=== PATIENT | female | born 1960 | race Caucasian/White ===

== ENCOUNTER 2016-07-15 05:56 | Day surgery (SDC) | payer OTHER ==
[~2016-07-15] VITALS: Ht 160 cm; Wt 90.7 kg
[2016-07-15] MEDS ORDERED: LEVOTHYROXIN0.075 M2 PO (07:03)
[2016-07-15] MEDS ORDERED: OMEPRAZOLE40 MG PO (07:03)
[2016-07-15] MEDS ORDERED: HCTZ/LISINOPRIL1 TA1 PO (07:03)
[2016-07-15] MEDS ORDERED: SEVOFLURANE 250 ML BTL INH ONE (07:30)
[2016-07-15] MEDS ORDERED: ONDANSETRON 4 MG/2 ML VIAL ONE (07:30)
[2016-07-15] MEDS ORDERED: PROPOFOL 200 MG/20 ML VIAL IV ONE (07:30)
[2016-07-15] MEDS ORDERED: fentaNYL 0.05 MG/ML VIAL ONE (07:38)
[2016-07-15] MEDS ORDERED: ONDANSETRON 4 MG/2 ML VIAL IVP PRN ×2 (07:55→08:20)
[2016-07-15] MEDS ORDERED: HYDROmorphone 1 MG/ML AMP IVP PRN (07:55)
[2016-07-15] MEDS ORDERED: ACETAMINOPHEN/CODEINE 300/30MG 1 TAB PO PRN (08:20)
[2016-07-15] MEDS ORDERED: IBUPROFEN 800 MG TAB PO PRN (08:20)
[2016-07-15] MEDS ORDERED: MORPHINE SULFATE 4 MG/ML SYR IM/IVP PRN (08:20)
[2016-07-15] MEDS: HYDROmorphone PFS 2 MG/ML SYR ONE ×2 (08:40→08:50)
[2016-07-15 09:30] VITALS: BP 142/84
--- NOTE | 2016-07-15 09:30 | NUR ---
RECEIVED REPORT FROM OR NURSE. PT IS AAOX4, DENIES PAIN/DISCOMFORT AT THIS TIME. SKIN IS DRY AND INTACT. PERIPAD IN PLACE, MODERATE AMOUNT OF SANGUINEOUS BLOOD. IV IS PATENT AND INTACT. PT IS ON ROOM AIR, VITALS STABLE. CALL LIGHT WITHIN REACH. ORIENTED PT TO HOSP ENVIRONMENT. WILL CONTINUE TO MONITOR.
--- NOTE | 2016-07-15 11:30 | NUR ---
PT RESTING COMFORTABLY AND AROUSABLE. FAMILY AT BEDSIDE. WILL CONTINUE TO MONITOR.
--- NOTE | 2016-07-15 14:47 | NUR ---
ALL NEEDS MET AT THIS TIME.
[2016-07-15 16:00] VITALS: BP 100/52
--- NOTE | 2016-07-15 16:13 | NUR ---
VITALS REMAIN STABLE, WILL CONTINUE TO MONITOR.
--- NOTE | 2016-07-15 18:48 | NUR ---
PT RESTING, NO S/SX OF DISTRESS NOTED.
--- NOTE | 2016-07-15 19:11 | NUR ---
Patient's Plan of Care was discussed and reviewed with PECAN PICKER: JO ANN
--- NOTE | 2016-07-15 19:11 | NUR ---
ENDORSED TO WATER POLLUTION SPECIALIST FOR CONTINUITY OF CARE IN STABLE CONDITION.
--- NOTE | 2016-07-15 19:12 | NUR ---
RECD. RESTING IN BED, AWAKE, A/OX4. RESPIRATION EVEN AND UNLABORED. IV SALINE LOCK AT THE RIGHT AC G 20, PATENT, INTACT. CLAIMED VAGINAL BLEEDING MINIMAL. SAFETY MEASURES ENFORCED. INSTRUCTED TO CALL NURSE BEFORE GETTING OUT OF BED. DENIES PAIN 0/10.
--- NOTE | 2016-07-15 21:00 | NUR ---
INQUIRED IF SHE SHE IN PAIN AND IF SHE LIKE PAIN MEDICATION. STATED "I'M SHANI". DENIES PAIN 0/10.
--- NOTE | 2016-07-15 21:30 | NUR ---
JUICES GIVEN, TOLERATED WELL.
[2016-07-16] VITALS: BP 113/58
--- NOTE | 2016-07-16 | NUR ---
SLEEPING COMFORTABLY IN BED.
--- NOTE | 2016-07-16 04:00 | NUR ---
STILL SLEEPING IN BED, NO DISTRESS NOTED.
[2016-07-16 04:59] VITALS: BP 113/58
--- NOTE | 2016-07-16 06:45 | NUR ---
VOIDING WELL. NO COMPLAINT OF PAIN DURING THE SHIFT.
--- NOTE | 2016-07-16 07:00 | NUR ---
DR. Mo PARKS CAME AND TOOK OUT THE PACKING. TOLERATED WELL. PATIENT WILL BE DISCHARGED TODAY. CONDITION REMAIN STABLE. WILL ENDORSE TO AM NURSE FOR CONTINUITY OF CARE.
--- NOTE | 2016-07-16 07:00 | NUR ---
RECEIVED REPORT FROM NIGHT NURSE. PT IS AAOX4 SERBIAN SPEAKING. PT IS ON ROOM AIR, IV TO RIGHT HAND 20 G SALINE LOCK. SKIN INTACT. NO S/S OF RESPIRATORY DISTRESS NOTED,INITIAL ASSESSMENT COMPLETED, REVIEWED PLAN OF CARE WITH PT PT VERBALIZED UNDERSTANDING, ALL SAFETY PRECAUTIONS MET, ALL NEEDS MET. CALL LIGHT WITHIN REACH. WILL CONTINUE TO MONITOR.
[2016-07-16 08:00] VITALS: BP 116/63
--- NOTE | 2016-07-16 08:22 | NUR ---
PATIENT HAS BEEN SCREENED AND CATEGORIZED MODERATE NUTRITION RISK. PATIENT WILL BE SEEN WITHIN 3-5 DAYS OF ADMISSION. 07/18/16-07/20/[address]
--- NOTE | 2016-07-16 09:10 | NUR ---
REVIEWED DISCHARGE PLAN WITH PT, PT VERBALIZED UNDERSTANDING.
--- NOTE | 2016-07-16 09:45 | NUR ---
PT SIGNED ALL DISCHARGE PAPERWORK, IV REMOVED TIP INTACT, DISCHARGE EDUCATION GIVEN, PT VERBALIZED UNDERSTANDING ALL ID BANDS REMOVED, ALL PERSONAL BELONGINGS WITH PT.
--- NOTE | 2016-07-16 10:00 | NUR ---
PT WAS WHEELED OUT TO FRONT LOBBY IN STABLE CONDITION.
== END 2016-07-16 10:00 | disposition home or self-care (01) ==
LOC: MDS 05:56 → MMU 06:07 → EDSTATUS 07:30 → MTU 16:36 → MDS 07-16 10:00
PROVIDERS: ATTEND Obstetrics & Gynecology
DX: N81.10 Cystocele, unspecified (principal); N81.6 Rectocele; N39.3 Stress incontinence (female) (male); E66.3 Overweight; I10 Essential (primary) hypertension; E03.9 Hypothyroidism, unspecified; F41.9 Anxiety disorder, unspecified; K21.9 Gastro-esophageal reflux disease without esophagitis; I21.3 ST elevation (STEMI) myocardial infarction of unspecified site; J45.909 Unspecified asthma, uncomplicated
CPT/HCPCS: 36415; 57260; 71010; 80053; 85025; 86886; 86900; 86901; 87081; 93005; J0690; J1170; J2405; J2704; J3010; J7030; J7060; J7120